=== PATIENT | female | born 1965 | race Caucasian/White ===

== ENCOUNTER 2023-12-17 12:08 | Emergency (ER) | payer BC ==
[~2023-12-17] VITALS: Ht 177.8 cm; Wt 106.6 kg
[~2023-12-17 12:08] MED LIST: ALBU90OI; AZIT250 PO; BUPR150T2; PARO10
[2023-12-17 13:01] VITALS: BP 117/84
[2023-12-17 13:18] LABS: BASOPHILS ABSOLUTE AUTO 0.03 K/mm3 (0.00-0.23); BASOPHILS PERCENT AUTO 0 % (0-2); EOSINOPHILS PERCENT AUTO 0 % (0-6); Hematocrit 38.9 % (33.0-51.0); Hemoglobin 13.1 g/dL (11.5-16.0); IMMATURE GRAN ABSOLUTE AUTO 0.09 K/mm3 (0.00-0.10); IMMATURE GRAN PERCENT AUTO 1 % (0-1); LYMPHOCYTES ABSOLUTE AUTO 0.84 K/mm3 (0.84-5.20); LYMPHOCYTES PERCENT AUTO 5 % (21-46); MONOCYTES ABSOLUTE AUTO 1.56 K/mm3 (0.16-1.47); MONOCYTES PERCENT AUTO 9 % (4-13); Mean Corpuscular HGB 28.7 pg (26.0-34.0); Mean Corpuscular HGB Conc 33.7 g/dL (31.5-36.5); Mean Corpuscular Volume 85 fL (80-100); Mean Platelet Volume 9.6 fL (9.1-12.4); NEUTROPHILS PERCENT AUTO 86 % (41-73); Platelet Count 228 K/mm3 (150-400); RDW Coefficient Variation 12.6 % (11.7-14.2); Red Blood Cell Count 4.57 M/mm3 (3.80-5.20); White Blood Cell Count 17.52 K/mm3 (4.00-11.30)
[2023-12-17 13:33] LABS: Bun/Creatinine Ratio 17.4 (12.0-20.0); Calcium, Blood 9.2 mg/dL (8.5-10.1); Creatinine, Blood 1.09 mg/dL (0.40-1.00); Potassium, Blood 3.5 mmol/L (3.5-5.5)
[2023-12-17 16:03] LABS: Source, Urine Clean Catch
[2023-12-17 16:11] LABS: Appearance, Urine Turbid (Clear); Blood, Urine 2+ (Neg); Color, Urine Yellow (P-Yellow); Glucose Qualitative, Urine Neg (Neg); Ketones, Urine Neg (Neg); Leukocyte Esterase, Urine 3+ (Neg); Nitrite, Urine Pos (Neg); Protein, Urine 2+ (Neg); Specific Gravity, Urine 1.025 (1.003-1.022); Urobilinogen, Urine 2+ (Normal)
[2023-12-17 16:26] LABS: Bacteria Many /hpf; Bilirubin, Urine 1+ (Neg); Mucus Light (0-Heavy); Red Blood Cells, Urine 0-2 /hpf (0-2); Squamous Epithelial Cells Many /hpf (Few); White Blood Cells, Urine TNTC /hpf (0-5)
[2023-12-17 16:27] LABS: Hyaline Casts 0-2 /lpf (0-2)
[2023-12-17] MEDS ORDERED: CefTRIAXone Sodium 1,000 MG in NS 100 ML IV ONE (16:30)
[2023-12-17] MEDS ORDERED: NS 1,000 ML IV SCH (16:30)
[2023-12-17] MEDS ORDERED: Ketorolac Tromethamine 15mg Vial IV ONE (16:35)
[2023-12-17] MEDS ORDERED: Cefpodoxime Pr100 MG PO (16:41)
== END 2023-12-17 18:28 | disposition home or self-care (01) ==
LOC: ER 12:08
PROVIDERS: Emergency Medicine
DX: N12 Tubulo-interstitial nephritis, not specified as acute or chronic (principal); Z88.8 Allergy status to other drugs, medicaments and biological substances; Z79.899 Other long term (current) drug therapy
CPT/HCPCS: 80048; 81001; 85025; 87077; 87086; 87186; 96365; 96375; 99283-25; J0696; J1885; J7030

== ENCOUNTER 2024-09-05 22:47 | Emergency (ER) | payer BC ==
[~2024-09-05] VITALS: Ht 177.8 cm; Wt 120.2 kg
[~2024-09-05 22:47] MED LIST changes: +Cefpodoxime Pr100 MG PO; -PARO10; +PAXIL40 MG PO
[2024-09-05 23:45] LABS: BASOPHILS ABSOLUTE AUTO 0.03 K/mm3 (0.00-0.23); BASOPHILS PERCENT AUTO 0 % (0-2); EOSINOPHILS ABSOLUTE AUTO 0.04 K/mm3 (0.00-0.68); EOSINOPHILS PERCENT AUTO 0 % (0-6); Hematocrit 38.3 % (33.0-51.0); Hemoglobin 12.8 g/dL (11.5-16.0); IMMATURE GRAN ABSOLUTE AUTO 0.08 K/mm3 (0.00-0.10); IMMATURE GRAN PERCENT AUTO 0 % (0-1); LYMPHOCYTES ABSOLUTE AUTO 1.16 K/mm3 (0.84-5.20); LYMPHOCYTES PERCENT AUTO 7 % (21-46); MONOCYTES ABSOLUTE AUTO 1.72 K/mm3 (0.16-1.47); MONOCYTES PERCENT AUTO 10 % (4-13); Mean Corpuscular HGB Conc 33.4 g/dL (31.5-36.5); Mean Corpuscular Volume 85 fL (80-100); NEUTROPHILS ABSOLUTE AUTO 14.84 K/mm3 (1.96-9.15); NEUTROPHILS PERCENT AUTO 83 % (41-73); NRBC ABSOLUTE 0.00 K/mm3 (0.00-0.02); NRBC Auto 0.0 /100 WBC (0.0-0.2); Platelet Count 208 K/mm3 (150-400); RDW Coefficient Variation 12.2 % (11.7-14.2); RDW Standard Deviation 37.8 fL (35.1-46.3)
[2024-09-06 00:07] LABS: Alanine Aminotransfer (ALT/SGP 21.0 U/L (12-78); Albumin, Blood 3.3 g/dL (3.4-5.0); Albumin/Globulin Ratio 0.9 (0.8-1.8); Anion Gap 9.0 mmol/L (3-11); Aspartate Aminotrans (AST/SGOT 15.0 U/L (12-37); Bilirubin, Total 1.5 mg/dL (0.1-1.0); Blood Urea Nitrogen 13.0 mg/dL (8-24); CO2, Blood 25.0 mmol/L (21-32); Calcium, Blood 8.6 mg/dL (8.5-10.1); Chloride, Blood 106.0 mmol/L (98-108); Creatinine, Blood 0.93 mg/dL (0.40-1.00); Globulin, Blood 3.8 g/dL (2.2-4.0); Glucose, Blood 116.0 mg/dL (70-99); Potassium, Blood 3.6 mmol/L (3.5-5.5); Sodium, Blood 136.0 mmol/L (136-145); Total Protein, Blood 7.1 g/dL (6.4-8.2)
[2024-09-06] MEDS ORDERED: Ketorolac Tromethamine 15mg Vial IV ONE (00:50)
[2024-09-06 04:27] LABS: Source, Urine Clean Catch
[2024-09-06 04:37] LABS: Bilirubin, Urine Neg (Neg); Glucose Qualitative, Urine Neg (Neg); Ketones, Urine 2+ (Neg); Leukocyte Esterase, Urine Neg (Neg); Protein, Urine 2+ (Neg); Specific Gravity, Urine 1.015 (1.003-1.022); Urobilinogen, Urine 2+ (Normal)
[2024-09-06 04:46] LABS: Color, Urine Yellow (P-Yellow); Red Blood Cells, Urine 0-2 /hpf (0-2); White Blood Cells, Urine 0-2 /hpf (0-5)
[2024-09-06] MEDS ORDERED: NS 1,000 ML IV SCH (05:30)
[2024-09-06 07:00] VITALS: BP 133/76
[2024-09-06] MEDS ORDERED: CEPH500 PO (07:12)
== END 2024-09-06 07:31 | disposition home or self-care (01) ==
LOC: ER 22:47
PROVIDERS: Emergency Medicine
DX: N20.0 Calculus of kidney (principal); D72.829 Elevated white blood cell count, unspecified; E86.0 Dehydration; Z68.38 Body mass index [BMI] 38.0-38.9, adult; Z88.8 Allergy status to other drugs, medicaments and biological substances; Z79.2 Long term (current) use of antibiotics; Z79.899 Other long term (current) drug therapy
CPT/HCPCS: 74177; 80053; 81001; 83690; 85025; 96374; 99284; J1885; J7030; Q9967

== ENCOUNTER 2024-09-09 21:55 | Inpatient (IN) | payer BC ==
[~2024-09-09] VITALS: Ht 165.1 cm; Wt 114.7 kg
[~2024-09-09 21:55] MED LIST changes: +CEPH500 PO
[2024-09-09 23:17] LABS: BASOPHILS ABSOLUTE AUTO 0.05 K/mm3 (0.00-0.23); BASOPHILS PERCENT AUTO 0 % (0-2); EOSINOPHILS ABSOLUTE AUTO 0.24 K/mm3 (0.00-0.68); EOSINOPHILS PERCENT AUTO 1 % (0-6); Hematocrit 35.0 % (33.0-51.0); Hemoglobin 11.6 g/dL (11.5-16.0); IMMATURE GRAN ABSOLUTE AUTO 0.16 K/mm3 (0.00-0.10); IMMATURE GRAN PERCENT AUTO 1 % (0-1); LYMPHOCYTES ABSOLUTE AUTO 1.07 K/mm3 (0.84-5.20); LYMPHOCYTES PERCENT AUTO 5 % (21-46); MONOCYTES ABSOLUTE AUTO 1.64 K/mm3 (0.16-1.47); MONOCYTES PERCENT AUTO 8 % (4-13); Mean Corpuscular HGB Conc 33.1 g/dL (31.5-36.5); Mean Corpuscular Volume 85 fL (80-100); NEUTROPHILS ABSOLUTE AUTO 16.60 K/mm3 (1.96-9.15); NEUTROPHILS PERCENT AUTO 84 % (41-73); NRBC ABSOLUTE 0.00 K/mm3 (0.00-0.02); NRBC Auto 0.0 /100 WBC (0.0-0.2); Platelet Count 296 K/mm3 (150-400); RDW Coefficient Variation 12.0 % (11.7-14.2); RDW Standard Deviation 36.8 fL (35.1-46.3)
[2024-09-09 23:40] LABS: Alanine Aminotransfer (ALT/SGP 17.0 U/L (12-78); Albumin, Blood 2.7 g/dL (3.4-5.0); Albumin/Globulin Ratio 0.6 (0.8-1.8); Anion Gap 9.0 mmol/L (3-11); Aspartate Aminotrans (AST/SGOT 12.0 U/L (12-37); Bilirubin, Total 0.6 mg/dL (0.1-1.0); Blood Urea Nitrogen 11.0 mg/dL (8-24); CO2, Blood 25.0 mmol/L (21-32); Calcium, Blood 8.4 mg/dL (8.5-10.1); Chloride, Blood 103.0 mmol/L (98-108); Creatinine, Blood 0.97 mg/dL (0.40-1.00); Globulin, Blood 4.2 g/dL (2.2-4.0); Glucose, Blood 188.0 mg/dL (70-99); Potassium, Blood 3.4 mmol/L (3.5-5.5); Sodium, Blood 134.0 mmol/L (136-145); Total Protein, Blood 6.9 g/dL (6.4-8.2)
[2024-09-10] VITALS (15 sets, daily range): BP systolic 93–127; BP diastolic 52–99
[2024-09-10] MEDS ORDERED: Clindamycin 600mg in D5W 50 ML IV ONE (01:15)
[2024-09-10] MEDS ORDERED: Ketorolac Tromethamine 15mg Vial IV ONE (01:15)
[2024-09-10] MEDS ORDERED: SULTRIDS PO (02:15)
[2024-09-10] MEDS ORDERED: Vancomycin (Pharmacy Consult) IV SCH (02:35)
[2024-09-10] MEDS ORDERED: NS 1,000 ML IV SCH (02:35)
[2024-09-10] MEDS ORDERED: Cefepime HCl 2,000 MG in NS 100 ML IV SCH (02:57)
[2024-09-10] MEDS ORDERED: CELEBREX200 MG PO (04:57)
[2024-09-10] MEDS ORDERED: ALLOPURINOL100 M1 PO (04:57)
[2024-09-10] MEDS ORDERED: CEPH500 PO (04:58)
[2024-09-10] MEDS ORDERED: SULFAMETHOXAZO1 EAC1 PO (04:59)
[2024-09-10 07:38] LABS: BASOPHILS ABSOLUTE AUTO 0.05 K/mm3 (0.00-0.23); BASOPHILS PERCENT AUTO 0 % (0-2); EOSINOPHILS ABSOLUTE AUTO 0.28 K/mm3 (0.00-0.68); EOSINOPHILS PERCENT AUTO 1 % (0-6); Hematocrit 32.1 % (33.0-51.0); Hemoglobin 10.5 g/dL (11.5-16.0); IMMATURE GRAN ABSOLUTE AUTO 0.17 K/mm3 (0.00-0.10); IMMATURE GRAN PERCENT AUTO 1 % (0-1); LYMPHOCYTES ABSOLUTE AUTO 1.80 K/mm3 (0.84-5.20); LYMPHOCYTES PERCENT AUTO 9 % (21-46); MONOCYTES ABSOLUTE AUTO 2.16 K/mm3 (0.16-1.47); MONOCYTES PERCENT AUTO 11 % (4-13); Mean Corpuscular HGB Conc 32.7 g/dL (31.5-36.5); Mean Corpuscular Volume 85 fL (80-100); NEUTROPHILS ABSOLUTE AUTO 15.88 K/mm3 (1.96-9.15); NEUTROPHILS PERCENT AUTO 78 % (41-73); NRBC ABSOLUTE 0.00 K/mm3 (0.00-0.02); NRBC Auto 0.0 /100 WBC (0.0-0.2); Platelet Count 247 K/mm3 (150-400); RDW Coefficient Variation 12.0 % (11.7-14.2); RDW Standard Deviation 37.7 fL (35.1-46.3)
[2024-09-10] MEDS ORDERED: MetroNIDAZOLE 500MG/NS 100 ml 100 ML IV SCH (08:00)
[2024-09-10 08:06] LABS: Alanine Aminotransfer (ALT/SGP 14.0 U/L (12-78); Albumin, Blood 2.4 g/dL (3.4-5.0); Albumin/Globulin Ratio 0.6 (0.8-1.8); Anion Gap 7.0 mmol/L (3-11); Aspartate Aminotrans (AST/SGOT 9.0 U/L (12-37); Bilirubin, Total 0.5 mg/dL (0.1-1.0); Blood Urea Nitrogen 13.0 mg/dL (8-24); CO2, Blood 29.0 mmol/L (21-32); Calcium, Blood 8.4 mg/dL (8.5-10.1); Chloride, Blood 105.0 mmol/L (98-108); Creatinine, Blood 1.05 mg/dL (0.40-1.00); Globulin, Blood 4.0 g/dL (2.2-4.0); Glucose, Blood 125.0 mg/dL (70-99); Potassium, Blood 3.4 mmol/L (3.5-5.5); Sodium, Blood 138.0 mmol/L (136-145); Total Protein, Blood 6.4 g/dL (6.4-8.2)
[2024-09-10] MEDS ORDERED: Enoxaparin 40 MG/0.4 ML SYR SC SCH (09:00)
[2024-09-10] MEDS ORDERED: Vitamin D1000 UNI1 PO (12:23)
[2024-09-10] MEDS ORDERED: L-Lysine500 M1 PO (12:24)
--- NOTE | 2024-09-10 14:56 | NUR ---
PT TRANSPORTED TO [facility]. AGREES WITH PLANNED SURGERY. C/O LLE PAIN 08/22. LUNG SOUNDS CLEAR. SILVER RING LEFT ON BEDSIDE TABLE PER PATIENTS INSTUCTION.
[2024-09-10] MEDS ORDERED: Ketorolac Tromethamine 15mg Vial IV PRN (15:05)
[2024-09-10] MEDS ORDERED: FentaNYL Citrate 50 MCG/ML 2 ML Injection ONE ×2 (15:24→16:57)
[2024-09-10] MEDS ORDERED: Midazolam HCl 1MG / ML 2ML Vial ONE (15:24)
[2024-09-10] MEDS ORDERED: Ondansetron HCl 2 MG / ML 2ML Vial ONE (15:40)
[2024-09-10] MEDS ORDERED: HYDROmorphone HCl/Pf 1MG SYR ONE ×2 (15:51→16:47)
[2024-09-10] MEDS ORDERED: Vancomycin HCl 1000 MG ADDvantage ONE (16:01)
[2024-09-10] MEDS ORDERED: Ketorolac Tromethamine 30mg Vial ONE (16:39)
--- NOTE | 2024-09-10 19:32 | NUR ---
ASSUMPTION OF CARE 59 Y/O FEMALE ADMITTED VIA ED FOR CELLULITIS OF LLE. HAD I&D PERFORMED TODAY WITH TANIYA DRAIN IN PLACE. CLIENT IS ON REGULAR DIET. IV ACCESS TO BILAT AC. IV ABT ORDERED. BED IS IN LOW POSITION AND CALL LIGHT IS WITHIN REACH
[2024-09-11 04:11] VITALS: BP 84/49
[2024-09-11] MEDS ORDERED: HYDROcodone 5-APAP 325 TAB PO PRN (04:55)
--- NOTE | 2024-09-11 05:26 | NUR ---
SHIFT SUMMARY: PT AOX4 CALLS APPROPRIATELY ABLE TO MAKE NEEDS KNOWN. PT IND IN THE ROOM THOUGH IS HOOKED UP TO IV AND TANIYA DRAIN ON LLE. DRESSING IS CDI WITH SOME DRAINAGE COLLECTED IN DRAIN, ALTHOUGH LLE IS EDEMETOUS. PT TOLERATING MEDICATIONS WELL. COMPLAINTS OF PAIN THIS MORNING, MEDICATED PER EMR BUT WASNT EFFECTIVE. CONTACTED NIGHT HOSPITALIST AND WAS GIVEN FURTHER PAIN REGIMENT. PT SLEPT WELL THROUGH MOST OF THE NIGHT AND ABLE TO EAT SOME SOUP AND TOLERATED WELL. NO ACUTE OVERNIGHT EVENTS. PT IN BED RESTING, BED IN LOWEST POSITION, CALL LIGHT IN REACH. CONTINUING CARE.
[2024-09-11 05:43] LABS: BASOPHILS ABSOLUTE AUTO 0.03 K/mm3 (0.00-0.23); BASOPHILS PERCENT AUTO 0 % (0-2); EOSINOPHILS ABSOLUTE AUTO 0.56 K/mm3 (0.00-0.68); EOSINOPHILS PERCENT AUTO 5 % (0-6); Hematocrit 30.2 % (33.0-51.0); Hemoglobin 9.9 g/dL (11.5-16.0); IMMATURE GRAN ABSOLUTE AUTO 0.14 K/mm3 (0.00-0.10); IMMATURE GRAN PERCENT AUTO 1 % (0-1); LYMPHOCYTES ABSOLUTE AUTO 1.34 K/mm3 (0.84-5.20); LYMPHOCYTES PERCENT AUTO 11 % (21-46); MONOCYTES ABSOLUTE AUTO 1.06 K/mm3 (0.16-1.47); MONOCYTES PERCENT AUTO 8 % (4-13); Mean Corpuscular HGB Conc 32.8 g/dL (31.5-36.5); Mean Corpuscular Volume 87 fL (80-100); NEUTROPHILS ABSOLUTE AUTO 9.42 K/mm3 (1.96-9.15); NEUTROPHILS PERCENT AUTO 75 % (41-73); NRBC ABSOLUTE 0.00 K/mm3 (0.00-0.02); NRBC Auto 0.0 /100 WBC (0.0-0.2); Platelet Count 257 K/mm3 (150-400); RDW Coefficient Variation 12.1 % (11.7-14.2); RDW Standard Deviation 39.0 fL (35.1-46.3)
[2024-09-11 06:11] LABS: Alanine Aminotransfer (ALT/SGP 13.0 U/L (12-78); Albumin, Blood 2.1 g/dL (3.4-5.0); Albumin/Globulin Ratio 0.6 (0.8-1.8); Anion Gap 5.0 mmol/L (3-11); Aspartate Aminotrans (AST/SGOT 9.0 U/L (12-37); Bilirubin, Total 0.3 mg/dL (0.1-1.0); Blood Urea Nitrogen 14.0 mg/dL (8-24); CO2, Blood 28.0 mmol/L (21-32); Calcium, Blood 8.5 mg/dL (8.5-10.1); Chloride, Blood 110.0 mmol/L (98-108); Creatinine, Blood 0.83 mg/dL (0.40-1.00); Globulin, Blood 3.8 g/dL (2.2-4.0); Glucose, Blood 100.0 mg/dL (70-99); Potassium, Blood 3.8 mmol/L (3.5-5.5); Sodium, Blood 139.0 mmol/L (136-145); Total Protein, Blood 5.9 g/dL (6.4-8.2)
[2024-09-11 07:16] VITALS: BP 98/69
[2024-09-11] MEDS ORDERED: Misc. Tablet PO SCH (09:00)
[2024-09-11] MEDS ORDERED: Clindamycin 900mg in D5W 50ML 50 ML IV SCH (11:35)
[2024-09-11 15:05] VITALS: BP 100/60
[2024-09-11 18:28] LABS: Vancomycin, Trough 15.7 ug/mL (5.0-10.0)
--- NOTE | 2024-09-11 19:29 | NUR ---
SHIFT SUMMARY CLIENT IS AOX4. MEDICATION COMPLIANT. REMAINS ON IV ABT. DRESSING AND TANIYA DRAIN REMAIN INTACT AND IN PLACE OF LEFT LEG. CLIENT IS NPO AFTER MIDNIGHT FOR I&D. C/O PAIN X 1 THIS SHIFT. MWEDICATED PER EMAR. BED IS IN LOW POSITION AND CALL LIGHT IS WITHIN REACH
[2024-09-11 19:57] VITALS: BP 104/67
[2024-09-11] MEDS ORDERED: NS 250 ML IV PRN (20:25)
[2024-09-12] VITALS (11 sets, daily range): BP systolic 93–153; BP diastolic 55–92
[2024-09-12 06:11] LABS: BASOPHILS ABSOLUTE AUTO 0.04 K/mm3 (0.00-0.23); BASOPHILS PERCENT AUTO 0 % (0-2); EOSINOPHILS ABSOLUTE AUTO 0.59 K/mm3 (0.00-0.68); EOSINOPHILS PERCENT AUTO 6 % (0-6); Hematocrit 27.7 % (33.0-51.0); Hemoglobin 9.1 g/dL (11.5-16.0); IMMATURE GRAN ABSOLUTE AUTO 0.34 K/mm3 (0.00-0.10); IMMATURE GRAN PERCENT AUTO 4 % (0-1); LYMPHOCYTES ABSOLUTE AUTO 1.74 K/mm3 (0.84-5.20); LYMPHOCYTES PERCENT AUTO 19 % (21-46); MONOCYTES ABSOLUTE AUTO 0.91 K/mm3 (0.16-1.47); MONOCYTES PERCENT AUTO 10 % (4-13); Mean Corpuscular HGB Conc 32.9 g/dL (31.5-36.5); Mean Corpuscular Volume 87 fL (80-100); NEUTROPHILS ABSOLUTE AUTO 5.76 K/mm3 (1.96-9.15); NEUTROPHILS PERCENT AUTO 61 % (41-73); NRBC ABSOLUTE 0.00 K/mm3 (0.00-0.02); NRBC Auto 0.0 /100 WBC (0.0-0.2); Platelet Count 307 K/mm3 (150-400); RDW Coefficient Variation 12.1 % (11.7-14.2); RDW Standard Deviation 38.9 fL (35.1-46.3)
[2024-09-12 06:34] LABS: Alanine Aminotransfer (ALT/SGP 12.0 U/L (12-78); Albumin, Blood 2.0 g/dL (3.4-5.0); Albumin/Globulin Ratio 0.6 (0.8-1.8); Anion Gap 6.0 mmol/L (3-11); Aspartate Aminotrans (AST/SGOT 7.0 U/L (12-37); Bilirubin, Total 0.2 mg/dL (0.1-1.0); Blood Urea Nitrogen 13.0 mg/dL (8-24); CO2, Blood 27.0 mmol/L (21-32); Calcium, Blood 8.0 mg/dL (8.5-10.1); Chloride, Blood 110.0 mmol/L (98-108); Creatinine, Blood 0.81 mg/dL (0.40-1.00); Globulin, Blood 3.6 g/dL (2.2-4.0); Glucose, Blood 83.0 mg/dL (70-99); Potassium, Blood 4.0 mmol/L (3.5-5.5); Sodium, Blood 139.0 mmol/L (136-145); Total Protein, Blood 5.6 g/dL (6.4-8.2)
[2024-09-12] MEDS ORDERED: Rocuronium Bromide 10 MG/ML 5ML Injection IV ONE (08:24)
[2024-09-12] MEDS ORDERED: Bupivacaine 0.5% HCl 5 MG/ML 30MLVIAL ONE (08:26)
[2024-09-12] MEDS ORDERED: Midazolam HCl 1MG / ML 2ML Vial ONE (09:01)
[2024-09-12] MEDS ORDERED: FentaNYL Citrate 50 MCG/ML 2 ML Injection ONE (09:01)
[2024-09-12] MEDS ORDERED: ePHEDrine Sulfate 50 MG/ML 1ML Injection ONE (09:11)
--- NOTE | 2024-09-12 09:23 | NUR ---
NOTE PT WHEELED TO OR AT 0825. GAVE OR BOTH ANTIBIOTICS DUE AT 0800. PT "REPORTED ACCIDENTLY PULLED OUT DRAIN". THIS RN NOTIFIED AND DAY HEEL COMPRESSOR. ROUNDED ON PT WHEN PT NOT IN ROOM. REPORTED "CONT FLUIDS DUE TO DEHYDRATION, MAY ORDER MIRALAX."
[2024-09-12] MEDS ORDERED: Albuterol 2.5 MG/3 ML VIAL INH PRN (09:40)
[2024-09-12] MEDS ORDERED: Ondansetron HCl 2 MG / ML 2ML Vial IV PRN (09:40)
[2024-09-12] MEDS ORDERED: FentaNYL Citrate 50 MCG/ML 2 ML Injection IV PRN ×2 (09:40→09:45)
[2024-09-12] MEDS ORDERED: ePHEDrine Sulfate 50 MG/ML 1ML Injection IV PRN (09:45)
[2024-09-12] MEDS ORDERED: HYDROmorphone HCl/Pf 1MG SYR IV PRN ×2 (09:45)
[2024-09-12] MEDS ORDERED: Ketorolac Tromethamine 30mg Vial ONE (10:00)
--- NOTE | 2024-09-12 10:41 | NUR ---
NOTE PT BACK IN ROOM FROM PACU. GOT REPORT ON PT FROM SUSPENSION CORD TIER. SUSPENSION CORD TIER REPORTED AUDREY AND GAUZE AND ACEWRAP IN LACE ON EXTREMITY. PT AWAKE. THIS RN GAVE PT NORCO ON ARRIVAL. PT REPORTS 4/10 PAIN. PT ABLE TO MOVE TOES AND HAS LESS THAN 3 SEC CAP REFIL. PT IN BED, BED IN LOWEST POSITION, CALL LIGHT IN REACH, LR RESTARTED AT 200ML/HR.
--- NOTE | 2024-09-12 19:24 | NUR ---
SHIFT SUMMARY PT A&OX4. PT ADMITTED DUE TO CELLULITIS. PT REPORTS PAIN, PAIN MANAGED PER EMAR, NO SHADOWING NOTED ON LAURA WRAP. PT EATS ADEQUATE. PT GOT IV ANTIBIOTIC TODAY X3. DR. WOLFE REPORTED PT WILL FINISH CURRENT BAG OF LR. PT IS WEIGHT BEARING EMILIANA. PT ON ROOM AIR. PT IN BED, BED IN LOWEST POSITION, CALL LIGHT IN REACH
[2024-09-13 02:30] VITALS: BP 142/85
[2024-09-13 05:28] LABS: BASOPHILS ABSOLUTE AUTO 0.04 K/mm3 (0.00-0.23); BASOPHILS PERCENT AUTO 0 % (0-2); EOSINOPHILS ABSOLUTE AUTO 0.11 K/mm3 (0.00-0.68); EOSINOPHILS PERCENT AUTO 1 % (0-6); Hematocrit 30.0 % (33.0-51.0); Hemoglobin 9.8 g/dL (11.5-16.0); IMMATURE GRAN ABSOLUTE AUTO 0.45 K/mm3 (0.00-0.10); IMMATURE GRAN PERCENT AUTO 4 % (0-1); LYMPHOCYTES ABSOLUTE AUTO 1.36 K/mm3 (0.84-5.20); LYMPHOCYTES PERCENT AUTO 11 % (21-46); MONOCYTES ABSOLUTE AUTO 1.04 K/mm3 (0.16-1.47); MONOCYTES PERCENT AUTO 8 % (4-13); Mean Corpuscular HGB Conc 32.7 g/dL (31.5-36.5); Mean Corpuscular Volume 87 fL (80-100); NEUTROPHILS ABSOLUTE AUTO 9.80 K/mm3 (1.96-9.15); NEUTROPHILS PERCENT AUTO 77 % (41-73); NRBC ABSOLUTE 0.00 K/mm3 (0.00-0.02); NRBC Auto 0.0 /100 WBC (0.0-0.2); Platelet Count 346 K/mm3 (150-400); RDW Coefficient Variation 11.9 % (11.7-14.2); RDW Standard Deviation 38.0 fL (35.1-46.3)
[2024-09-13 05:57] LABS: Alanine Aminotransfer (ALT/SGP 15.0 U/L (12-78); Albumin, Blood 2.3 g/dL (3.4-5.0); Albumin/Globulin Ratio 0.6 (0.8-1.8); Anion Gap 8.0 mmol/L (3-11); Aspartate Aminotrans (AST/SGOT 11.0 U/L (12-37); Bilirubin, Total 0.2 mg/dL (0.1-1.0); Blood Urea Nitrogen 13.0 mg/dL (8-24); CO2, Blood 27.0 mmol/L (21-32); Calcium, Blood 8.2 mg/dL (8.5-10.1); Chloride, Blood 109.0 mmol/L (98-108); Creatinine, Blood 0.77 mg/dL (0.40-1.00); Globulin, Blood 3.8 g/dL (2.2-4.0); Glucose, Blood 125.0 mg/dL (70-99); Potassium, Blood 3.9 mmol/L (3.5-5.5); Sodium, Blood 140.0 mmol/L (136-145); Total Protein, Blood 6.1 g/dL (6.4-8.2)
[2024-09-13 07:42] VITALS: BP 135/83
[2024-09-13] MEDS ORDERED: Polyethylene Glycol 3350 17 gm PO PRN (09:40)
[2024-09-13 15:46] VITALS: BP 133/78
--- NOTE | 2024-09-13 17:56 | NUR ---
SHIFT SUMMARY PT A&OX4. PT ADMITTED DUE TO CELLULITIS. PT REPORTS SOME PAIN, PAIN MANAGED PER EMAR. PT INDEPENDENT IN ROOM WITH BILATERAL WEIGHT BEARING TOLERATED. EATS ADEQUATE. PT REPORTS NO BM, PLAN TO START MIRALAX TOMORROW. PT VSS. CLEOCIN D/C TODAY. PT GETTING VANCOMYCIN AND MAXIPIME IV. NO SHADOWING NOTED ON LAURA WRAP. DRESSING INTACT. PT IN BED, BED IN LOWEST POSITION, CALL LIGHT IN REACH. SURGEON REPORTED PLAN TO ASSESS TOMORROW WOUND AND MAYBE ANOTHER I&D MONDAY, CONTINUE ANTIBIOTIC.
[2024-09-13 18:43] LABS: Vancomycin, Trough 19.3 ug/mL (5.0-10.0)
[2024-09-13 19:54] VITALS: BP 110/70
[2024-09-14 05:49] VITALS: BP 124/83
--- NOTE | 2024-09-14 06:34 | NUR ---
SHIFT SUMMARY PT A/Ox4, VSS ON RA. NO ACUTE CHANGES OVERNIGHT. PT REPORTS 4/10 LLE PAIN AFTER AMBULATION, PRN NORCO GIVEN. PT DENIES SOB, NAUSEA OR OTHER COMPLAINTS. PT UP AD JU IN ROOM. CALL LIGHT IN REACH, NO FURTHER NEEDS AT THIS TIME.
[2024-09-14 07:34] VITALS: BP 118/80
[2024-09-14 07:42] LABS: Hematocrit 29.9 % (33.0-51.0); Hemoglobin 9.5 g/dL (11.5-16.0); Mean Corpuscular HGB Conc 31.8 g/dL (31.5-36.5); Mean Corpuscular Volume 87 fL (80-100); NRBC ABSOLUTE 0.00 K/mm3 (0.00-0.02); NRBC Auto 0.0 /100 WBC (0.0-0.2); Platelet Count 351 K/mm3 (150-400); RDW Coefficient Variation 12.0 % (11.7-14.2); RDW Standard Deviation 39.0 fL (35.1-46.3)
[2024-09-14 08:08] LABS: Alanine Aminotransfer (ALT/SGP 18.0 U/L (12-78); Albumin, Blood 2.3 g/dL (3.4-5.0); Albumin/Globulin Ratio 0.7 (0.8-1.8); Anion Gap 5.0 mmol/L (3-11); Aspartate Aminotrans (AST/SGOT 18.0 U/L (12-37); Bilirubin, Total 0.2 mg/dL (0.1-1.0); Blood Urea Nitrogen 12.0 mg/dL (8-24); CO2, Blood 30.0 mmol/L (21-32); Calcium, Blood 8.1 mg/dL (8.5-10.1); Chloride, Blood 111.0 mmol/L (98-108); Creatinine, Blood 0.84 mg/dL (0.40-1.00); Globulin, Blood 3.4 g/dL (2.2-4.0); Glucose, Blood 89.0 mg/dL (70-99); Potassium, Blood 4.2 mmol/L (3.5-5.5); Sodium, Blood 142.0 mmol/L (136-145); Total Protein, Blood 5.7 g/dL (6.4-8.2)
[2024-09-14 08:17] LABS: BAND PERCENT MAN 4 % (0-8); BASOPHILS ABSOLUTE MAN 0.00 K/mm3 (0.00-0.23); BASOPHILS PERCENT MAN 0 % (0-2); EOSINOPHILS ABSOLUTE MAN 0.19 K/mm3 (0.00-0.68); EOSINOPHILS PERCENT MAN 2 % (0-6); LYMPHOCYTES ABSOLUTE MAN 3.57 K/mm3 (0.84-5.20); LYMPHOCYTES PERCENT MAN 37 % (21-46); METAMYELOCYTE ABSOLUTE MAN 0.19 K/mm3 (0.00-0.00); METAMYELOCYTE PERCENT MAN 2 % (0-0); MONOCYTES ABSOLUTE MAN 0.77 K/mm3 (0.16-1.47); MONOCYTES PERCENT MAN 8 % (4-13); MYELOCYTE ABSOLUTE MAN 0.19 K/mm3 (0.00-0.00); MYELOCYTE PERCENT MAN 2 % (0-0); NEUTROPHILS ABSOLUTE MAN 4.72 K/mm3 (1.96-9.15); SEG NEUTROPHILS PERCENT MAN 45 % (41-73)
[2024-09-14] MEDS ORDERED: SULFAMETHOXAZO1 EAC1 PO (13:54)
[2024-09-14] MEDS ORDERED: L-LYSINE500 MG PO (13:54)
[2024-09-14] MEDS ORDERED: VISBIOME 112.51 EACH PO (13:55)
== END 2024-09-14 14:26 | disposition home or self-care (01) | DRG 571 ==
LOC: ER 21:55 → ERHOLD 21:56 → MEDS 21:56
PROVIDERS: Emergency Medicine; Orthopaedic Surgery Sports Medicine; ADMIT Student in an Organized Health Care Education/Training Program
PROC: 3E03329 Introduction of Other Anti-infective into Peripheral Vein, Percutaneous Approach (ICD-10-PCS; 2024-09-09)
PROC: 0JBP0ZZ Excision of Left Lower Leg Subcutaneous Tissue and Fascia, Open Approach (ICD-10-PCS; principal; 2024-09-10 15:00)
PROC: 0QBH0ZZ Excision of Left Tibia, Open Approach (ICD-10-PCS; 2024-09-12)
DX: L02.416 Cutaneous abscess of left lower limb (principal); I96 Gangrene, not elsewhere classified; M96.840 Postprocedural hematoma of a musculoskeletal structure following a musculoskeletal system procedure; L03.116 Cellulitis of left lower limb; I95.9 Hypotension, unspecified; B95.62 Methicillin resistant Staphylococcus aureus infection as the cause of diseases classified elsewhere; F32.A Depression, unspecified; D64.9 Anemia, unspecified; E87.6 Hypokalemia; Z87.891 Personal history of nicotine dependence; Z88.8 Allergy status to other drugs, medicaments and biological substances; Z79.899 Other long term (current) drug therapy; Y83.8 Other surgical procedures as the cause of abnormal reaction of the patient, or of later complication, without mention of misadventure at the time of the procedure; J45.909 Unspecified asthma, uncomplicated; Z90.710 Acquired absence of both cervix and uterus; Z90.49 Acquired absence of other specified parts of digestive tract; Z98.890 Other specified postprocedural states; Z98.84 Bariatric surgery status; Z98.51 Tubal ligation status; Z96.651 Presence of right artificial knee joint
CPT/HCPCS: 36415; 73701; 80053; 80202; 83605; 85025; 86141; 87040; 87070; 87071; 87075; 87077; 87147; 87186; 87205; 93005; 93010; 96365; 96366; 96367; 96375; 97112; 97161; 99284-25; A6253; A9270; G0378; J0692; J1171; J1885; J2250; J2405; J2704; J3010; J3373; J7030; J7040; J7050; J7120; Q9967

== ENCOUNTER 2024-10-28 02:52 | Day surgery (SDC) | payer BC ==
[~2024-10-28 02:52] MED LIST changes: +ALLOPURINOL100 M1 PO; +CELEBREX200 MG PO; +L-LYSINE500 MG PO; +L-Lysine500 M1 PO; +SULFAMETHOXAZO1 EAC1 PO; +SULTRIDS PO; +VISBIOME 112.51 EACH PO; +Vitamin D1000 UNI1 PO
== END 2024-10-28 23:00 | disposition home or self-care (01) ==
LOC: WOUND 02:52
DX: L03.116 Cellulitis of left lower limb (principal); I87.2 Venous insufficiency (chronic) (peripheral); Z87.891 Personal history of nicotine dependence; Z88.8 Allergy status to other drugs, medicaments and biological substances; Z98.84 Bariatric surgery status
CPT/HCPCS: G0463

== ENCOUNTER 2024-10-30 02:53 | Day surgery (SDC) | payer BC | END 2024-10-30 23:00 | disposition home or self-care (01) | LOC: WOUND 02:53 | DX: L97.822 Non-pressure chronic ulcer of other part of left lower leg with fat layer exposed (principal); I87.2 Venous insufficiency (chronic) (peripheral); L03.113 Cellulitis of right upper limb ==

== ENCOUNTER 2024-11-04 00:55 | Day surgery (SDC) | payer BC | END 2024-11-04 22:00 | disposition home or self-care (01) | LOC: WOUND 00:55 | DX: L97.822 Non-pressure chronic ulcer of other part of left lower leg with fat layer exposed (principal); I87.2 Venous insufficiency (chronic) (peripheral); L03.116 Cellulitis of left lower limb ==

== ENCOUNTER 2024-11-11 01:36 | Day surgery (SDC) | payer BC | END 2024-11-11 23:00 | disposition home or self-care (01) | LOC: WOUND 01:36 | DX: L97.822 Non-pressure chronic ulcer of other part of left lower leg with fat layer exposed (principal); I87.2 Venous insufficiency (chronic) (peripheral); L03.116 Cellulitis of left lower limb ==

== ENCOUNTER 2024-11-19 00:30 | Day surgery (SDC) | payer BC | END 2024-11-19 23:00 | disposition home or self-care (01) | LOC: WOUND 00:30 | DX: Z87.828 Personal history of other (healed) physical injury and trauma (principal); I87.2 Venous insufficiency (chronic) (peripheral); L03.116 Cellulitis of left lower limb | CPT/HCPCS: G0463 ==